=== PATIENT | male | born 1985 | race Caucasian/White ===

== ENCOUNTER → 2017-07-29 | Outpatient (CLI) | payer BC ==
[~2017-07-29] MED LIST: ALBU17AE3 IH; NAPR-689 PO
--- NOTE | 2017-07-29 11:49 | Diagnostic Imaging Report ---
PROCEDURE: US Gallbladder. TECHNIQUE: Multiple real-time grayscale images were obtained over the right upper quadrant in various projections. INDICATION: Right upper quadrant pain. FINDINGS: The pancreas appears unremarkable. The liver is fairly homogeneous with no focal lesion. There is hepatopetal flow in the portal vein seen. The CBD is 4 mm in caliber. The gallbladder demonstrates no stones or wall thickening. No pericholecystic fluid. The right kidney is 10.4 cm in length with no hydronephrosis or focal lesion. No fluid collection in the right upper quadrant is seen. Sonographic David sign reportedly negative. IMPRESSION: Unremarkable exam. Dictated by: Dictated on workstation # [id number]
== END ==
LOC: RAD 08:23
PROVIDERS: ATTEND Family Medicine
DX: R10.11 Right upper quadrant pain (principal); R11.0 Nausea
CPT/HCPCS: 76705

== ENCOUNTER → 2020-08-05 | Outpatient (CLI) | payer SELFPAY ==
[~2020-08-05] MED LIST changes: +CATHETER FLUSH 10 ML SYR IV PRN; +HOLD METFORMIN - RECEIVED CONTRAST 20 ML VIAL IV SCH; +IOHEXOL 350 MG/ML 100 ML (OMNIPAQUE 350) VIAL IV ONE; +NS 100 ML (IVPB) BAG IV ONE
[2020-08-05 12:23] LABS: BUN/CREATININE RATIO 16; CREATININE SERUM 1.09 MG/DL (0.60-1.30); GFR ESTIMATED > 60
--- NOTE | 2020-08-05 14:35 | Diagnostic Imaging Report ---
PROCEDURE: CT head with and without contrast. TECHNIQUE: Multiple contiguous axial images were obtained through the brain before and after the administration of intravenous contrast. Auto Exposure Controls were utilized during the CT exam to meet ALARA standards for radiation dose reduction. INDICATION: Memory loss The previous CT head exam of 08/01/2011 failed to show any sign of an acute intracranial abnormality. On this exam the precontrast images are unremarkable for a mass, shift of midline or hemorrhage. Furthermore there is no abnormal enhancement on the postcontrast series to suggest a neoplastic or infectious process. The ventricles are small but unchanged in size when compared to the prior exam. The bone windows are unremarkable for fracture or for destructive lesion. The sinuses and orbits were not visualized in their entirety. Where visualized there is no acute abnormality. IMPRESSION: 1. There is no acute intracranial abnormality evident. There is no abnormal enhancement on the postcontrast series to indicate a neoplastic or infectious process either. 2. If clinical concern regarding an underlying abnormality persists, then MRI would be recommended for further study. Dictated by: Dictated on workstation # [id number]
== END ==
LOC: RAD 11:45
PROVIDERS: ATTEND Nurse Practitioner Family
DX: I69.319 Unspecified symptoms and signs involving cognitive functions following cerebral infarction (principal)
CPT/HCPCS: 36415; 70470; 82565; 84520